=== PATIENT | female | born 1950 | race Caucasian/White ===

== ENCOUNTER 2017-06-26 09:35 | Emergency (ER) | payer MEDICARE, MEDICAID ==
[~2017-06-26] VITALS: Ht 160 cm; Wt 76.5 kg
[~2017-06-26 09:35] MED LIST: ALPR1TAB2 PO; ONDA4TAB6 PO
[2017-06-26 09:48] VITALS: BP 132/73
[2017-06-26] MEDS ORDERED: ERYT1OIN6 EACHEYE (10:11)
== END 2017-06-26 10:22 | disposition home or self-care (01) ==
LOC: ER 09:35
DX: J32.9 Chronic sinusitis, unspecified (principal); H10.9 Unspecified conjunctivitis; Z79.899 Other long term (current) drug therapy
CPT/HCPCS: 99283

== ENCOUNTER 2018-11-29 14:55 | Inpatient (IN) | payer MEDICARE, MEDICAID ==
[~2018-11-29] VITALS: Ht 157.5 cm; Wt 71.0 kg
[2018-11-29] MEDS ORDERED: LORazepam 2 mg/ml vial IV ONE ×2 (15:15→18:20)
[2018-11-29] MEDS ORDERED: ondansetron/PF 4mg/2ml inj IV ONE ×2 (15:15→18:10)
[2018-11-29] MEDS ORDERED: normal saline 1000ML IV soln IVB ONE ×3 (15:15→20:25)
[2018-11-29 15:43] LABS: BASOPHILS # (AUTO) 0.1 X10'3 (0-0.2); BASOPHILS % (AUTO) 0.3 % (0-1); EOSINOPHILS % (AUTO) 0 % (0-6); HEMATOCRIT 42.4 % (35.0-45.0); HEMOGLOBIN 13.9 g/dl (12.0-16.0); LYMPHOCYTES # (AUTO) 0.5 X10'3 (1.1-4.8); LYMPHOCYTES % (AUTO) 2.6 % (21-51); MEAN CORPUSCULAR HGB CONC 32.9 g/dL (33.0-36.5); MEAN CORPUSCULAR VOLUME 94.3 FL (78-98); MEAN PLATELET VOLUME 10.1 FL (7.4-10.4); MONOCYTES # (AUTO) 1.3 X10'3 (0-0.9); MONOCYTES % (AUTO) 6.4 % (2-12); NEUTROPHILS # (AUTO) 19.1 X10'3 (1.8-7.7); NEUTROPHILS % (AUTO) 90.7 % (42-75); PLATELET COUNT 257 X10'3 (140-440)
[2018-11-29 15:57] LABS: ALANINE AMINOTRANSFERASE 59 U/L (12-78); ALBUMIN 3.7 G/DL (3.4-5.0); ALKALINE PHOSPHATASE 82 IU/L (46-116); ANION GAP 26 (8-16); ASPARTATE AMINO TRANSFERASE 46 U/L (10-37); BILIRUBIN,TOTAL 0.5 MG/DL (0.1-1.0); BLOOD UREA NITROGEN 23 MG/DL (7-18); BUN/CREATININE RATIO 19.5 (6.6-38.0); CHLORIDE 100 MMOL/L (99-107); CREATININE 1.18 MG/DL (0.40-0.90); GLUCOSE 335 MG/DL (70-104); LIPASE 150 U/L (73-393); SODIUM 141 MMOL/L (135-145); TOTAL PROTEIN 7.5 G/DL (6.4-8.2); eGFR 45 ML/MIN
[2018-11-29 16:06] LABS: CALCIUM 7.8 MG/DL (8.5-10.1)
[2018-11-29 16:07] LABS: CLARITY,URINE CLEAR (Clear); COLOR,URINE STRAW (Yellow); GLUCOSE, URINE 250 mg/dl (Neg); KETONES,URINE >=80 mg/dl (Neg); LEUKOCYTE ESTERASE ,URINE NEGATIVE (Neg); NITRITES, URINE NEGATIVE (Neg); OCCULT BLOOD,URINE SMALL (Neg); PH,URINE 5.5 (4.8-8.0); PROTEIN,URINE TRACE mg/dl (Neg); UA COLLECTION TYPE CLN CATCH MIDSTREAM; UROBILINOGEN,URINE 0.2 E.U/dL (0.2-1.0)
[2018-11-29 16:22] LABS: BACTERIA,URINE FEW /HPF (Neg); HYALINE CASTS 0-3 /LPF (NEGATIVE); RBC,URINE 0-2 /HPF (0-2); SQUAMOUS EPITHELIAL CELL,UR MODERATE /LPF (FEW); WBC,URINE 0-4 /HPF (0-4)
[2018-11-29] MEDS ORDERED: CefTRIAXone 2gm/D5W 50ml 50 ML IV ONE (16:40)
[2018-11-29 18:05] LABS: ABG HCO3 16.7 mmol/L (22.0-26.0); ABG OXYGEN SATURATION 93.3 % (95-98); ABG PCO2 (T) 28.9 mmHg (35.0-45.0); ABG PO2 (T) 68.1 mmHg (83-108); ALLEN'S TEST Positive; FCOHb 0.6 % (0.5-1.5); FMetHb 0.1 % (0.3-1.12); FO2Hb 92.6 % (94-100); TOTAL HEMOGLOBIN 13.8 G/dl (12.0-16.0)
[2018-11-29] MEDS ORDERED: NO HOME MEDS (20:38)
--- NOTE | 2018-11-29 20:46 | NUR ---
HERBERT AT BEDSIDE FOR INTIAL EVAL
--- NOTE | 2018-11-29 21:00 | NUR ---
pt had 7 beats of vtach when arrived to the unit, contacted dr. Browne, he said he will put in order
--- NOTE | 2018-11-29 21:54 | NUR ---
PAGER ID: [phone] MESSAGE: Padmini Fernando [id number] c/o chest pain 06/11 and had 5 beats of Vtach. Thanks, Tita RN [phone]
[2018-11-29] MEDS: normal saline 1000ml 1,000 ML IV SCH (22:26)
[2018-11-29] MEDS ORDERED: potassium Cl 20 mEq SR tablet PO PRN (22:30)
[2018-11-29] MEDS ORDERED: potassium CL 10mEq/100ml bag 100 ML IV PRN ×2 (22:30)
[2018-11-29] MEDS ORDERED: magnesium 4gm in 100ml NS 100 ML IV PRN (22:30)
[2018-11-29] MEDS ORDERED: ondansetron/PF 4mg/2ml inj IV PRN (22:30)
[2018-11-29] MEDS ORDERED: acetaminophen 325mg tablet PO PRN ×2 (22:30)
[2018-11-29] MEDS ORDERED: mag hydrox/Alum hydrox/simeth 30ml oral suspension PO PRN (22:30)
[2018-11-29] MEDS ORDERED: magnesium hydroxide 30ml (MOM) UD suspension PO PRN (22:30)
[2018-11-29] MEDS ORDERED: magnesium Cl slow-release 64mg tablet PO PRN (22:30)
[2018-11-29] MEDS ORDERED: magnesium 2GM in 50ml NS 50 ML IV PRN (22:30)
[2018-11-29] MEDS ORDERED: LORazepam 2 mg/ml vial IV PRN (22:30)
[2018-11-29 23:00] VITALS: BP 107/79
[2018-11-30] MEDS: MVI, adult No.4 with vit. K 10 ML in dextrose 5% water 500ml 500 ML IV SCH ×2 (02:13)
[2018-11-30] MEDS: thiamine inj. 100 MG, folic acid inj. 2 MG in normal saline 100ml IV soln 100 ML IV SCH (02:13)
[2018-11-30 03:00] VITALS: BP 106/61
[2018-11-30 05:19] LABS: ALBUMIN 2.9 G/DL (3.4-5.0); ANION GAP 10 (8-16); BLOOD UREA NITROGEN 13 MG/DL (7-18); BUN/CREATININE RATIO 17.6 (6.6-38.0); CHLORIDE 110 MMOL/L (99-107); CREATININE 0.74 MG/DL (0.40-0.90); GLUCOSE 154 MG/DL (70-104); MAGNESIUM 1.7 MG/DL (1.5-2.4); POTASSIUM 4.2 MMOL/L (3.5-5.1); SODIUM 143 MMOL/L (135-145); TOTAL CARBON DIOXIDE 23.3 MMOL/L (24-32); eGFR 78 ML/MIN
--- NOTE | 2018-11-30 06:00 | NUR ---
Patient in room PCU 3016. I have received report from JUAN Rivers and had the opportunity to ask questions and assume patient care. patient is currently resting in bed, bed locked and low, call light in reach, no acute distress, will continue to monitor.
--- NOTE | 2018-11-30 06:11 | NUR ---
Problems reprioritized. Patient report given, questions answered & plan of care reviewed with Jennifer MARTINEZ.
[2018-11-30 06:46] LABS: BASOPHILS % (AUTO) 0.2 % (0-1); EOSINOPHILS % (AUTO) 0.1 % (0-6); HEMATOCRIT 36.1 % (35.0-45.0); LYMPHOCYTES # (AUTO) 0.5 X10'3 (1.1-4.8); LYMPHOCYTES % (AUTO) 4.1 % (21-51); MEAN CORPUSCULAR HEMOGLOBIN 30.8 PG (27.0-31.0); MEAN CORPUSCULAR HGB CONC 33.3 g/dL (33.0-36.5); MEAN CORPUSCULAR VOLUME 92.5 FL (78-98); MEAN PLATELET VOLUME 9.3 FL (7.4-10.4); MONOCYTES # (AUTO) 0.6 X10'3 (0-0.9); MONOCYTES % (AUTO) 4.4 % (2-12); NEUTROPHILS # (AUTO) 12.2 X10'3 (1.8-7.7); NEUTROPHILS % (AUTO) 91.2 % (42-75); PLATELET COUNT 184 X10'3 (140-440); RED CELL DISTRIBUTION WIDTH 14.7 % (11.5-14.5); WHITE BLOOD COUNT 13.4 X10'3 (4.5-11.0)
[2018-11-30] MEDS: CefTRIAXone/D5W-Rocephin 1gm 50 ML IV SCH (07:40)
[2018-11-30] MEDS: enoxaparin 40mg/0.4ml syringe SQ SCH (07:41)
[2018-11-30] MEDS: lactobacillus rhamnosus 10,000 MMU CELLS/CAPSULE PO SCH (07:41)
[2018-11-30] MEDS: K and/or MAG REPLACEMENT MC SCH (07:54)
[2018-11-30] MEDS ORDERED: NO HOME MEDS (08:40)
--- NOTE | 2018-11-30 12:08 | NUR ---
field start PIV failed, fluids leaking out around catheter, primary nurse attempted 2 IV starts, charge nurse attempted 2 IV starts, PICC nurse paged at [phone] for assistance. IV fluids currently not running.
[2018-11-30 12:22] VITALS: BP 114/63
[2018-11-30] MEDS: normal saline 1000ml 1,000 ML IV SCH ×2 (12:40→18:26)
--- NOTE | 2018-11-30 15:10 | NUR ---
Patient states she has a sore throat and is unable to eat her meals. Informed doctor Will and changed her to full liquids per her request
--- NOTE | 2018-11-30 15:11 | NUR ---
PAGER ID: [phone] MESSAGE: JUAN Rodriguez, ext [phone], [phone], archana Alvarez patient c/o sore throat d/t vomiting and is unable to eat her meals. I am changing her to full liquid tray per her request.
[2018-11-30 15:33] VITALS: BP 104/69
[2018-11-30 18:00] VITALS: BP 105/55
--- NOTE | 2018-11-30 18:10 | NUR ---
Patient in room PCU 3016. I have received report from Jennifer MARTINEZ and had the opportunity to ask questions and assume patient care.
--- NOTE | 2018-11-30 18:26 | NUR ---
Problems reprioritized. Patient report given, questions answered & plan of care reviewed with JUAN Rivers. Patient is currently resting in bed, bed locked and low, call light in reach, stable at shift change.
[2018-11-30] MEDS: LORazepam 1 MG tablet PO PRN (19:34)
[2018-11-30 23:00] VITALS: BP 101/48
[2018-12-01 02:00] VITALS: BP 103/70
[2018-12-01] MEDS: normal saline 1000ml 1,000 ML IV SCH ×2 (04:26→14:51)
[2018-12-01 05:49] LABS: BASOPHILS % (AUTO) 0.3 % (0-1); EOSINOPHILS % (AUTO) 0.1 % (0-6); HEMATOCRIT 35.3 % (35.0-45.0); HEMOGLOBIN 12.1 g/dl (12.0-16.0); LYMPHOCYTES # (AUTO) 1.4 X10'3 (1.1-4.8); LYMPHOCYTES % (AUTO) 14.6 % (21-51); MEAN CORPUSCULAR HEMOGLOBIN 31.3 PG (27.0-31.0); MEAN CORPUSCULAR HGB CONC 34.2 g/dL (33.0-36.5); MEAN CORPUSCULAR VOLUME 91.6 FL (78-98); MEAN PLATELET VOLUME 9.4 FL (7.4-10.4); MONOCYTES # (AUTO) 0.4 X10'3 (0-0.9); MONOCYTES % (AUTO) 4.3 % (2-12); NEUTROPHILS # (AUTO) 7.7 X10'3 (1.8-7.7); NEUTROPHILS % (AUTO) 80.7 % (42-75); PLATELET COUNT 150 X10'3 (140-440); RED BLOOD COUNT 3.86 X10'6 (4.20-5.60); WHITE BLOOD COUNT 9.5 X10'3 (4.5-11.0)
[2018-12-01 05:57] LABS: ALBUMIN 2.6 G/DL (3.4-5.0); ANION GAP 7 (8-16); BLOOD UREA NITROGEN 7 MG/DL (7-18); BUN/CREATININE RATIO 14.6 (6.6-38.0); CALCIUM 7.1 MG/DL (8.5-10.1); CHLORIDE 111 MMOL/L (99-107); CREATININE 0.48 MG/DL (0.40-0.90); GLUCOSE 86 MG/DL (70-104); MAGNESIUM 1.6 MG/DL (1.5-2.4); POTASSIUM 3.2 MMOL/L (3.5-5.1); SODIUM 145 MMOL/L (135-145); TOTAL CARBON DIOXIDE 27.2 MMOL/L (24-32); eGFR > 90 ML/MIN
[2018-12-01 06:00] VITALS: BP 128/74
--- NOTE | 2018-12-01 06:34 | NUR ---
Problems reprioritized. Patient report given, questions answered & plan of care reviewed with Jennifer MARTINEZ.
--- NOTE | 2018-12-01 06:39 | NUR ---
Patient in room PCU 3016. I have received report from JUAN Rivers and had the opportunity to ask questions and assume patient care. Patient currently resting in bed, bed locked and low, call light in reach, no acute distress, will continue to monitor.
[2018-12-01] MEDS: CefTRIAXone/D5W-Rocephin 1gm 50 ML IV SCH (08:14)
[2018-12-01] MEDS: MVI, adult No.4 with vit. K 10 ML in dextrose 5% water 500ml 500 ML IV SCH ×2 (08:17)
[2018-12-01] MEDS: thiamine inj. 100 MG, folic acid inj. 2 MG in normal saline 100ml IV soln 100 ML IV SCH (08:17)
[2018-12-01] MEDS: lactobacillus rhamnosus 10,000 MMU CELLS/CAPSULE PO SCH (08:18)
[2018-12-01] MEDS: enoxaparin 40mg/0.4ml syringe SQ SCH (08:19)
[2018-12-01] MEDS: LORazepam 1 MG tablet PO PRN ×2 (08:22→18:53)
[2018-12-01] MEDS: potassium Cl 20 mEq SR tablet PO PRN ×3 (08:22→22:18)
[2018-12-01] MEDS: K and/or MAG REPLACEMENT MC SCH (08:25)
[2018-12-01] MEDS: thiamine 100mg tablet PO SCH (10:02)
[2018-12-01] MEDS: folic acid 1mg tablet PO SCH (10:02)
[2018-12-01 11:00] VITALS: BP 103/64
[2018-12-01 15:47] VITALS: BP 133/76
[2018-12-01 18:00] VITALS: BP 131/65
--- NOTE | 2018-12-01 18:21 | NUR ---
Problems reprioritized. Patient report given, questions answered & plan of care reviewed with JUAN Jorgensen. Patient currently resting in bed, bed locked and low, call light in reach, stable at shift change.
--- NOTE | 2018-12-01 18:29 | NUR ---
Patient in room PCU 3014. I have received report from Jennifer MARTINEZ and had the opportunity to ask questions and assume patient care.
[2018-12-01 22:00] VITALS: BP 134/67
[2018-12-02 02:00] VITALS: BP 134/74
[2018-12-02] MEDS: normal saline 1000ml 1,000 ML IV SCH (04:45)
[2018-12-02 05:54] LABS: BASOPHILS % (AUTO) 0.6 % (0-1); EOSINOPHILS # (AUTO) 0.1 X10'3 (0-0.9); EOSINOPHILS % (AUTO) 1.4 % (0-6); HEMATOCRIT 37.4 % (35.0-45.0); HEMOGLOBIN 12.5 g/dl (12.0-16.0); LYMPHOCYTES # (AUTO) 1.5 X10'3 (1.1-4.8); LYMPHOCYTES % (AUTO) 27.8 % (21-51); MEAN CORPUSCULAR HGB CONC 33.5 g/dL (33.0-36.5); MEAN CORPUSCULAR VOLUME 92.4 FL (78-98); MONOCYTES # (AUTO) 0.3 X10'3 (0-0.9); MONOCYTES % (AUTO) 5.6 % (2-12); NEUTROPHILS # (AUTO) 3.4 X10'3 (1.8-7.7); NEUTROPHILS % (AUTO) 64.6 % (42-75); PLATELET COUNT 131 X10'3 (140-440); RED BLOOD COUNT 4.05 X10'6 (4.20-5.60); RED CELL DISTRIBUTION WIDTH 14.5 % (11.5-14.5); WHITE BLOOD COUNT 5.3 X10'3 (4.5-11.0)
--- NOTE | 2018-12-02 06:31 | NUR ---
Problems reprioritized. Patient report given, questions answered & plan of care reviewed with Jennifer MARTINEZ.
[2018-12-02 07:30] LABS: ALBUMIN 2.7 G/DL (3.4-5.0); ANION GAP 6 (8-16); BLOOD UREA NITROGEN 5 MG/DL (7-18); BUN/CREATININE RATIO 9.6 (6.6-38.0); CALCIUM 7.9 MG/DL (8.5-10.1); CHLORIDE 109 MMOL/L (99-107); CREATININE 0.52 MG/DL (0.40-0.90); GLUCOSE 84 MG/DL (70-104); MAGNESIUM 1.7 MG/DL (1.5-2.4); POTASSIUM 3.4 MMOL/L (3.5-5.1); SODIUM 145 MMOL/L (135-145); TOTAL CARBON DIOXIDE 29.6 MMOL/L (24-32); eGFR > 90 ML/MIN
[2018-12-02] MEDS: thiamine 100mg tablet PO SCH (07:47)
[2018-12-02] MEDS: lactobacillus rhamnosus 10,000 MMU CELLS/CAPSULE PO SCH (07:47)
[2018-12-02] MEDS: folic acid 1mg tablet PO SCH (07:47)
[2018-12-02] MEDS: CefTRIAXone/D5W-Rocephin 1gm 50 ML IV SCH (07:47)
[2018-12-02] MEDS: enoxaparin 40mg/0.4ml syringe SQ SCH (07:48)
[2018-12-02] MEDS: potassium Cl 20 mEq SR tablet PO PRN (07:53)
[2018-12-02] MEDS ORDERED: multivitamins, therapeutics tablet PO SCH (08:00)
[2018-12-02] MEDS: K and/or MAG REPLACEMENT MC SCH (08:00)
[2018-12-02] MEDS ORDERED: thiamine tablet PO (09:30)
[2018-12-02] MEDS ORDERED: MULT-1179 PO (09:30)
[2018-12-02] MEDS ORDERED: FOLI1TAB16 PO (09:30)
[2018-12-02] MEDS ORDERED: ATI1T PO (09:30)
[2018-12-02] MEDS ORDERED: SERT25TA PO (09:30)
[2018-12-02] MEDS ORDERED: LORA0.5T PO (09:35)
--- NOTE | 2018-12-02 11:20 | NUR ---
Received order for patient discharge to home. Patient received discharge packet and was provided with education on worsening symptoms of alcohol withdrawal and to return to the emergency room if she experiences them. Prescriptions called to [facility] per patient request, patient given prescription for lorazepam to take to pharmacy. Patient's IV removed, catheter tip intact, hemostasis acheived, telemetry removed, wrist band removed. Patient accompanied by significant other, taken to lobby in wheelchair by nurse's aid. Stable at time of discharge.
== END 2018-12-02 11:05 | disposition home or self-care (01) | DRG 683 ==
LOC: ER 14:56 → PCU 3S 21:37 → CMPBEDREQ 21:51 → PCU 3S 12-01 18:11
PROVIDERS: ADMIT Hospitalist; ATTEND Family Medicine
DX: N17.9 Acute kidney failure, unspecified (principal); E87.2 Acidosis; F10.230 Alcohol dependence with withdrawal, uncomplicated; R74.0 Nonspecific elevation of levels of transaminase and lactic acid dehydrogenase [LDH]; D72.829 Elevated white blood cell count, unspecified; R00.0 Tachycardia, unspecified; E86.0 Dehydration; E87.6 Hypokalemia; F12.90 Cannabis use, unspecified, uncomplicated; F32.9 Major depressive disorder, single episode, unspecified; F41.9 Anxiety disorder, unspecified; G35 Multiple sclerosis; J44.9 Chronic obstructive pulmonary disease, unspecified; M81.0 Age-related osteoporosis without current pathological fracture; Z79.899 Other long term (current) drug therapy; Z71.41 Alcohol abuse counseling and surveillance of alcoholic
CPT/HCPCS: 36415; 36600; 71045; 74176; 80048; 80053; 81001; 82803; 82948; 83605; 83690; 83735; 84145; 85018; 85025; 87040; 87081; 93005; 96361; 96365; 96366; 96375; 97161; 97530; 99285; G0378; J0696; J1650; J2060; J2405; J3411; J3490; J7030; J7060